=== PATIENT | male | born 1955 | race Two or more races ===

== ENCOUNTER 2024-01-27 14:57 | Inpatient (IN) | payer OTHER ==
[~2024-01-27] VITALS: Ht 182.9 cm; Wt 116.0 kg
[2024-01-27] MEDS: MORPHINE SULFATE 4 MG/ML SYR/VIAL IV ONE (15:30)
[2024-01-27] MEDS: ONDANSETRON HCL 4 MG/2 ML VIAL IV ONE (15:30)
[2024-01-27 19:43] LABS: Basophils # (auto) 0.1 10 ^3/uL (0-0.2); Basophils % (auto) 0.5 % (0.0-2.0); Eosinophils # (auto) 0.2 10 ^3/uL (0-0.8); Eosinophils % (auto) 1.6 % (0.0-7.0); Hematocrit 42.4 % (41.0-53.0); Hemoglobin 14.2 g/dL (13.5-17.5); Lymphocytes # (auto) 0.9 10 ^3/uL (0.4-5.4); Lymphocytes % (auto) 6.1 % (10.0-50.0); Mean Corpuscular Hemoglobin 31.2 pg (28.0-32.0); Mean Corpuscular Hgb Conc. 33.4 g/dL (32.0-36.0); Mean Corpuscular Volume 93.6 fL (80.0-100.0); Monocytes % (auto) 7.2 % (0.0-12.0); Neutrophils # (auto) 11.9 10 ^3/uL (1.6-8.6); Neutrophils % (auto) 84.6 % (37.0-80.0); Red Blood Cells 4.53 10^6/uL (4.5-5.90); Red Cell Distribution Width 14.2 % (11.8-14.3); White Blood Cell 14.1 10^3/uL (4.4-10.8)
[2024-01-27 19:58] LABS: INR 1.04 (0.9-1.15)
[2024-01-27 20:10] LABS: Alanine Aminotransferase 27 U/L (7-40); Albumin 4.1 g/dL (3.2-4.8); Alkaline Phosphatase 125 U/L (46-116); Anion Gap 8 (5-15); Aspartate Aminotransferase 20 U/L (13-40); BUN/Creatinine Ratio 20.2 (10.0-20.0); Blood Urea Nitrogen 18 mg/dL (9-23); Calcium 9.8 mg/dL (8.5-10.1); Carbon Dioxide 24 mmol/L (20-30); Chloride 107 mmol/L (98-107); Glucose 167 mg/dL (74-106); Potassium 4.1 mmol/L (3.5-5.1); Sodium 139 mmol/L (136-145)
[2024-01-27 20:11] LABS: Bilirubin, Total 0.9 mg/dL (0.2-1.0); Total Protein 7.3 g/dL (5.7-8.2)
[2024-01-27] MEDS: SODIUM CHLORIDE 0.9% 1,000 ML IV SCH (20:45)
[2024-01-27] MEDS ORDERED: ONDANSETRON HCL 4 MG/2 ML VIAL IV PRN (20:45)
[2024-01-27] MEDS ORDERED: DEXTROSE (50%) 50ML SYRG IV PRN (20:45)
[2024-01-27 21:22] VITALS: RESP 14; O2SAT 96
[2024-01-28] MEDS: InsuLIN REG 1unit/0.01ml Soln (100units/ml) SC SCH (01:42)
[2024-01-28] MEDS: ACCU-CHEK COMFORT CURVE STRIP VI SCH (03:51)
[2024-01-28 05:55] VITALS: PULSE 92; RESP 16; O2SAT 95
[2024-01-28 06:22] VITALS: BP 149/74; PULSE 92; RESP 16; TEMP 99.4; O2SAT 91
[2024-01-28 06:25] LABS: Basophils # (auto) 0.1 10 ^3/uL (0-0.2); Basophils % (auto) 0.4 % (0.0-2.0); Eosinophils # (auto) 0.4 10 ^3/uL (0-0.8); Eosinophils % (auto) 2.8 % (0.0-7.0); Hematocrit 40.7 % (41.0-53.0); Hemoglobin 13.9 g/dL (13.5-17.5); Lymphocytes # (auto) 1.3 10 ^3/uL (0.4-5.4); Lymphocytes % (auto) 9.3 % (10.0-50.0); Mean Corpuscular Hemoglobin 31.9 pg (28.0-32.0); Mean Corpuscular Volume 93.6 fL (80.0-100.0); Monocytes # (auto) 1.1 10 ^3/uL (0-1.3); Monocytes % (auto) 7.9 % (0.0-12.0); Neutrophils # (auto) 10.8 10 ^3/uL (1.6-8.6); Neutrophils % (auto) 79.6 % (37.0-80.0); Nucleated Red Blood Cells % 0.1 %; Red Blood Cells 4.35 10^6/uL (4.5-5.90); White Blood Cell 13.6 10^3/uL (4.4-10.8)
[2024-01-28 06:41] LABS: Chloride 107 mmol/L (98-107); Sodium 139 mmol/L (136-145)
[2024-01-28 06:42] LABS: Anion Gap 8 (5-15); Calcium 9.3 mg/dL (8.5-10.1); Carbon Dioxide 24 mmol/L (20-30)
[2024-01-28 06:47] LABS: BUN/Creatinine Ratio 20.2 (10.0-20.0); Blood Urea Nitrogen 17 mg/dL (9-23); Glucose 163 mg/dL (74-106)
[2024-01-28] MEDS ORDERED: BUPR150T18 PO (07:09)
[2024-01-28] MEDS ORDERED: FIN5T PO (07:09)
[2024-01-28] MEDS ORDERED: SERT-160 PO (07:09)
[2024-01-28] MEDS ORDERED: MONT-8 PO (07:09)
[2024-01-28] MEDS ORDERED: ERGO1CAP12 PO (07:09)
[2024-01-28] MEDS ORDERED: ATOR20TA50 PO (07:09)
[2024-01-28] MEDS ORDERED: INSU1INJ3 SC (07:09)
[2024-01-28] MEDS ORDERED: DOCU-94 PO (07:09)
[2024-01-28] MEDS ORDERED: LOS25T PO (07:09)
[2024-01-28] MEDS ORDERED: CARB-112 (07:09)
[2024-01-28] MEDS ORDERED: LACT10SO3 PO (07:09)
[2024-01-28 08:00] VITALS: PULSE 106; RESP 20; O2SAT 92
[2024-01-28] MEDS: MORPHINE SULFATE INJ 2 MG/ml SYRG IV PRN (15:22)
[2024-01-28 20:00] VITALS: PULSE 8; RESP 18; O2SAT 95
[2024-01-28 20:43] VITALS: BP 140/80; PULSE 89; RESP 20; TEMP 98.1; O2SAT 98
[2024-01-29 05:05] VITALS: BP 148/88; PULSE 77; RESP 20; TEMP 98.1; O2SAT 97
[2024-01-29 09:00] VITALS: BP 166/87; PULSE 85; RESP 18; TEMP 98.4; O2SAT 93
[2024-01-29 12:32] VITALS: BP 146/80; PULSE 85; RESP 18; TEMP 97.8; O2SAT 94
[2024-01-29 15:26] VITALS: BP 146/80; PULSE 85; RESP 18; TEMP 97.8; O2SAT 94
[2024-01-29 17:00] VITALS: BP 146/86; PULSE 82; RESP 16; TEMP 97.6; O2SAT 94
[2024-01-29 20:00] VITALS: PULSE 84; RESP 18; O2SAT 94
== END 2024-01-29 22:45 | disposition short-term general hospital (02) | DRG 536 ==
LOC: ER 14:57 → EDBD 14:57 → OVERFLOW 20:39 → WEST WING 01-28 05:55
PROVIDERS: ADMIT Nurse Practitioner; ATTEND Family Medicine
PROC: 0T9B70Z Drainage of Bladder with Drainage Device, Via Natural or Artificial Opening (ICD-10-PCS; principal; 2024-01-28)
DX: S72.002A Fracture of unspecified part of neck of left femur, initial encounter for closed fracture (principal); E11.9 Type 2 diabetes mellitus without complications; E78.00 Pure hypercholesterolemia, unspecified; F03.90 Unspecified dementia, unspecified severity, without behavioral disturbance, psychotic disturbance, mood disturbance, and anxiety; I10 Essential (primary) hypertension; R33.8 Other retention of urine; N40.1 Benign prostatic hyperplasia with lower urinary tract symptoms; T83.021A Displacement of indwelling urethral catheter, initial encounter; Z79.4 Long term (current) use of insulin; Z79.899 Other long term (current) drug therapy; Y84.8 Other medical procedures as the cause of abnormal reaction of the patient, or of later complication, without mention of misadventure at the time of the procedure; W05.0XXA Fall from non-moving wheelchair, initial encounter; Y93.89 Activity, other specified; Y99.8 Other external cause status; Y92.099 Unspecified place in other non-institutional residence as the place of occurrence of the external cause
CPT/HCPCS: 36415; 71045; 72192; 73502; 80048; 80053; 82962; 85025; 85610; 86850; 86900; 86901; 93005; 97163; G0378; J1815; J2405

== ENCOUNTER 2024-03-02 10:47 | Inpatient (IN) | payer OTHER ==
[~2024-03-02] VITALS: Ht 180.3 cm; Wt 107.0 kg
[~2024-03-02 10:47] MED LIST: ATOR20TA50 PO; BUPR150T18 PO; CARB-112; DOCU-94 PO; ERGO1CAP12 PO; FIN5T PO; INSU1INJ3 SC; LACT10SO3 PO; LOS25T PO; MONT-8 PO; SERT-160 PO
[2024-03-02 11:52] LABS: Basophils # (auto) 0 10 ^3/uL (0-0.2); Basophils % (auto) 0.4 % (0.0-2.0); Eosinophils # (auto) 0.3 10 ^3/uL (0-0.8); Eosinophils % (auto) 2.7 % (0.0-7.0); Hematocrit 32.8 % (41.0-53.0); Hemoglobin 10.6 g/dL (13.5-17.5); Lymphocytes # (auto) 1.2 10 ^3/uL (0.4-5.4); Lymphocytes % (auto) 10.8 % (10.0-50.0); Mean Corpuscular Hemoglobin 29.1 pg (28.0-32.0); Mean Corpuscular Hgb Conc. 32.4 g/dL (32.0-36.0); Mean Corpuscular Volume 89.8 fL (80.0-100.0); Monocytes # (auto) 0.8 10 ^3/uL (0-1.3); Monocytes % (auto) 7.1 % (0.0-12.0); Neutrophils # (auto) 9.1 10 ^3/uL (1.6-8.6); Nucleated Red Blood Cells % 0.1 %; Red Blood Cells 3.65 10^6/uL (4.5-5.90); Red Cell Distribution Width 15.6 % (11.8-14.3); White Blood Cell 11.5 10^3/uL (4.4-10.8)
[2024-03-02 11:56] LABS: Anion Gap 7 (5-15); Carbon Dioxide 24 mmol/L (20-30); Chloride 104 mmol/L (98-107); Potassium 3.8 mmol/L (3.5-5.1); Sodium 135 mmol/L (136-145)
[2024-03-02 11:57] LABS: Calcium 9.3 mg/dL (8.7-10.4)
[2024-03-02 12:02] LABS: Blood Alcohol < 3.0 mg/dL (<10); Blood Urea Nitrogen 18 mg/dL (9-23); Glucose 195 mg/dL (74-106)
[2024-03-02 14:51] VITALS: PULSE 63; RESP 16; O2SAT 94
[2024-03-02 16:23] LABS: Urine Bacteria MOD /hpf (None Seen); Urine Blood 1+ /uL (Negative); Urine Clarity Turbid (Clear); Urine Color Yellow (Yellow); Urine Hyaline Cast FEW /lpf (0 - 2); Urine Mucus FEW (None Seen); Urine Protein, UAD 1+ (Negative); Urine Specific Gravity 1.026 (1.001-1.035); Urine Urobilinogen Normal (Negative); Urine WBC 160 /hpf (0 - 3); Urine pH 5.5 (5.0-9.0)
[2024-03-02] MEDS ORDERED: ACETAMINOPHEN 325 MG TAB PO PRN (17:15)
[2024-03-02] MEDS ORDERED: ONDANSETRON HCL 4 MG/2 ML VIAL IV PRN (17:15)
[2024-03-02] MEDS ORDERED: DOCUSATE SOD 100 MG CAP PO PRN (17:15)
[2024-03-02] MEDS ORDERED: DEXTROSE (50%) 50ML SYRG IV PRN (17:15)
[2024-03-02] MEDS ORDERED: hydrALAZINE HCL 20 MG/ML VL IV PRN (17:15)
[2024-03-02] MEDS: cefTRIAXone 1GM/50ML D5W 50 ML IV ONE (17:24)
[2024-03-02] MEDS: SODIUM CHLORIDE 0.9% 1,000 ML IV SCH (17:24)
[2024-03-02] MEDS ORDERED: MORPHINE SULFATE INJ 2 MG/ml SYRG IV PRN (17:45)
[2024-03-02] MEDS ORDERED: NITROGLYCERIN 0.4 MG SL TAB SL PRN (17:45)
[2024-03-02 19:30] VITALS: PULSE 63; RESP 16; O2SAT 97
[2024-03-02] MEDS: InsuLIN REG 1unit/0.01ml Soln (100units/ml) SC SCH (22:00)
[2024-03-02] MEDS: CARBIDOPA W LEVODOPA 25/100mg TABLET PO SCH (23:05)
[2024-03-02] MEDS: ACCU-CHEK COMFORT CURVE STRIP VI SCH (23:14)
[2024-03-03 06:10] LABS: Basophils # (auto) 0 10 ^3/uL (0-0.2); Basophils % (auto) 0.5 % (0.0-2.0); Eosinophils # (auto) 0.2 10 ^3/uL (0-0.8); Eosinophils % (auto) 2.3 % (0.0-7.0); Hematocrit 33.3 % (41.0-53.0); Hemoglobin 10.9 g/dL (13.5-17.5); Lymphocytes % (auto) 11.4 % (10.0-50.0); Mean Corpuscular Hemoglobin 29.3 pg (28.0-32.0); Mean Corpuscular Hgb Conc. 32.7 g/dL (32.0-36.0); Mean Corpuscular Volume 89.4 fL (80.0-100.0); Monocytes # (auto) 0.7 10 ^3/uL (0-1.3); Monocytes % (auto) 8.1 % (0.0-12.0); Neutrophils # (auto) 7.1 10 ^3/uL (1.6-8.6); Neutrophils % (auto) 77.7 % (37.0-80.0); Red Blood Cells 3.72 10^6/uL (4.5-5.90); Red Cell Distribution Width 15.7 % (11.8-14.3); White Blood Cell 9.2 10^3/uL (4.4-10.8)
[2024-03-03] MEDS: InsuLIN REG 1unit/0.01ml Soln (100units/ml) SC SCH (06:40)
[2024-03-03 06:44] LABS: Albumin 3.5 g/dL (3.2-4.8); Alkaline Phosphatase 152 U/L (46-116); Anion Gap 8 (5-15); Aspartate Aminotransferase 13 U/L (13-40); Bilirubin, Total 0.3 mg/dL (0.2-1.0); Blood Urea Nitrogen 17 mg/dL (9-23); Calcium 9.2 mg/dL (8.7-10.4); Carbon Dioxide 25 mmol/L (20-30); Chloride 105 mmol/L (98-107); Glucose 141 mg/dL (74-106); Potassium 4.1 mmol/L (3.5-5.1); Sodium 138 mmol/L (136-145); Total Protein 6.7 g/dL (5.7-8.2)
[2024-03-03 06:50] LABS: Alanine Aminotransferase < 9 U/L (7-40)
[2024-03-03 07:42] VITALS: PULSE 62; RESP 16; O2SAT 96
[2024-03-03] MEDS: cefTRIAXone 1GM/50ML D5W 50 ML IV SCH (09:23)
[2024-03-03] MEDS: SODIUM CHLORIDE 0.9% 1,000 ML IV SCH ×2 (12:00→16:09)
[2024-03-03] MEDS: SODIUM CHLORIDE 0.9% 1,850 ML IV ONE (14:45)
[2024-03-03 20:00] VITALS: PULSE 73; RESP 19; O2SAT 94
[2024-03-03] MEDS: TAMSULOSIN HYDROCHLORIDE 0.4 MG CAP PO SCH (21:54)
[2024-03-03] MEDS: ATORVASTATIN 20 MG TAB PO SCH (21:55)
[2024-03-04 06:13] LABS: Basophils # (auto) 0 10 ^3/uL (0-0.2); Basophils % (auto) 0.6 % (0.0-2.0); Eosinophils # (auto) 0.2 10 ^3/uL (0-0.8); Eosinophils % (auto) 2.7 % (0.0-7.0); Hematocrit 32.8 % (41.0-53.0); Lymphocytes # (auto) 1.4 10 ^3/uL (0.4-5.4); Lymphocytes % (auto) 17.1 % (10.0-50.0); Mean Corpuscular Hgb Conc. 33.5 g/dL (32.0-36.0); Mean Corpuscular Volume 89.5 fL (80.0-100.0); Monocytes # (auto) 0.6 10 ^3/uL (0-1.3); Monocytes % (auto) 6.7 % (0.0-12.0); Neutrophils % (auto) 72.9 % (37.0-80.0); Nucleated Red Blood Cells % 0.1 %; Red Blood Cells 3.67 10^6/uL (4.5-5.90); Red Cell Distribution Width 15.9 % (11.8-14.3); White Blood Cell 8.2 10^3/uL (4.4-10.8)
[2024-03-04] MEDS: HYDROcodone-ACET 5/325MG TAB PO PRN (06:16)
[2024-03-04 06:22] LABS: Anion Gap 7 (5-15); Carbon Dioxide 26 mmol/L (20-30); Chloride 104 mmol/L (98-107); Potassium 3.9 mmol/L (3.5-5.1); Sodium 137 mmol/L (136-145)
[2024-03-04 06:24] LABS: Calcium 9.3 mg/dL (8.7-10.4)
[2024-03-04 06:28] LABS: BUN/Creatinine Ratio 20.3 (10.0-20.0); Blood Urea Nitrogen 14 mg/dL (9-23); Glucose 178 mg/dL (74-106)
[2024-03-04 08:00] VITALS: PULSE 63; RESP 12; O2SAT 97
[2024-03-04] MEDS: FINASTERIDE 5 MG TAB PO SCH (10:13)
[2024-03-04 18:00] VITALS: RESP 18
[2024-03-04] MEDS ORDERED: TAMSULOSIN HYDROCHLORIDE 0.4 MG CAP PO SCH (18:00)
[2024-03-04] MEDS: CARBIDOPA W LEVODOPA 25/100mg TABLET PO SCH (18:16)
[2024-03-04] MEDS ORDERED: SUCR1SUS26 PO (19:01)
[2024-03-04] MEDS ORDERED: PANT40T PO (19:01)
[2024-03-04 20:00] VITALS: PULSE 63
[2024-03-04 21:01] VITALS: BP 141/74; PULSE 65; RESP 19; TEMP 99.1; O2SAT 96
[2024-03-05] VITALS (8 sets, daily range): BP systolic 113–155; BP diastolic 58–79; PULSE 65–75; RESP 14–20; TEMP 97.6–98.9; O2SAT 92–97
[2024-03-05 06:11] LABS: Basophils # (auto) 0 10 ^3/uL (0-0.2); Basophils % (auto) 0.5 % (0.0-2.0); Eosinophils # (auto) 0.2 10 ^3/uL (0-0.8); Eosinophils % (auto) 2.5 % (0.0-7.0); Hematocrit 34.3 % (41.0-53.0); Hemoglobin 11.3 g/dL (13.5-17.5); Lymphocytes # (auto) 1.2 10 ^3/uL (0.4-5.4); Lymphocytes % (auto) 14.3 % (10.0-50.0); Mean Corpuscular Hemoglobin 29.4 pg (28.0-32.0); Mean Corpuscular Volume 89.3 fL (80.0-100.0); Monocytes # (auto) 0.6 10 ^3/uL (0-1.3); Monocytes % (auto) 7.4 % (0.0-12.0); Neutrophils # (auto) 6.5 10 ^3/uL (1.6-8.6); Neutrophils % (auto) 75.3 % (37.0-80.0); Nucleated Red Blood Cells % 0.1 %; Red Blood Cells 3.84 10^6/uL (4.5-5.90); Red Cell Distribution Width 15.8 % (11.8-14.3); White Blood Cell 8.7 10^3/uL (4.4-10.8)
[2024-03-05 06:19] LABS: Chloride 104 mmol/L (98-107); Potassium 3.9 mmol/L (3.5-5.1); Sodium 137 mmol/L (136-145)
[2024-03-05 06:20] LABS: Anion Gap 6 (5-15); Calcium 9.6 mg/dL (8.7-10.4); Carbon Dioxide 27 mmol/L (20-30)
[2024-03-05 06:25] LABS: BUN/Creatinine Ratio 16.2 (10.0-20.0); Blood Urea Nitrogen 11 mg/dL (9-23); Glucose 182 mg/dL (74-106)
[2024-03-06] VITALS (8 sets, daily range): BP systolic 105–142; BP diastolic 54–74; PULSE 67–91; RESP 17–20; TEMP 97.4–99; O2SAT 91–95
[2024-03-06] MEDS ORDERED: TAMS0.4C36 PO (12:53)
[2024-03-06] MEDS: PANTOPRAZOLE 40 MG TAB PO ONE (17:38)
[2024-03-06] MEDS: ENOXAPARIN SOD 40 MG/0.4 ML SYRINGE SC ONE (17:39)
[2024-03-06] MEDS: SULFAMETHOX W/TRIMETH(800/160MG) DS TAB PO SCH (20:21)
[2024-03-07] VITALS (8 sets, daily range): BP systolic 104–132; BP diastolic 56–76; PULSE 69–94; RESP 16–20; TEMP 97.9–99; O2SAT 94–95
[2024-03-07] MEDS: PANTOPRAZOLE 40 MG TAB PO SCH (05:31)
[2024-03-07 07:07] LABS: Basophils # (auto) 0.1 10 ^3/uL (0-0.2); Basophils % (auto) 0.5 % (0.0-2.0); Eosinophils # (auto) 0.4 10 ^3/uL (0-0.8); Eosinophils % (auto) 3.5 % (0.0-7.0); Hematocrit 35.5 % (41.0-53.0); Hemoglobin 11.8 g/dL (13.5-17.5); Lymphocytes # (auto) 1.7 10 ^3/uL (0.4-5.4); Lymphocytes % (auto) 16.7 % (10.0-50.0); Mean Corpuscular Hemoglobin 29.6 pg (28.0-32.0); Mean Corpuscular Hgb Conc. 33.3 g/dL (32.0-36.0); Mean Corpuscular Volume 88.9 fL (80.0-100.0); Monocytes # (auto) 0.8 10 ^3/uL (0-1.3); Monocytes % (auto) 7.7 % (0.0-12.0); Neutrophils # (auto) 7.5 10 ^3/uL (1.6-8.6); Neutrophils % (auto) 71.6 % (37.0-80.0); Nucleated Red Blood Cells % 0.1 %; Red Blood Cells 3.99 10^6/uL (4.5-5.90); Red Cell Distribution Width 15.8 % (11.8-14.3); White Blood Cell 10.4 10^3/uL (4.4-10.8)
[2024-03-07 07:29] LABS: Anion Gap 6 (5-15); Carbon Dioxide 27 mmol/L (20-30); Chloride 103 mmol/L (98-107); Sodium 136 mmol/L (136-145)
[2024-03-07 07:31] LABS: Calcium 9.7 mg/dL (8.7-10.4)
[2024-03-07 07:35] LABS: BUN/Creatinine Ratio 20.8 (10.0-20.0); Blood Urea Nitrogen 15 mg/dL (9-23); Glucose 167 mg/dL (74-106)
[2024-03-07] MEDS: LACTULOSE 20Gm/30ML SOLN PO ONE ×2 (08:53→10:15)
[2024-03-07] MEDS: ENOXAPARIN SOD 40 MG/0.4 ML SYRINGE SC SCH (08:53)
[2024-03-07] MEDS: POLYETHYLENE GLYCOL 17 GM PWDR PO PRN (15:37)
[2024-03-07] MEDS ORDERED: LACTULOSE 20Gm/30ML SOLN PO PRN (22:00)
[2024-03-08 01:00] VITALS: BP 116/62; PULSE 87; RESP 18; TEMP 98.4; O2SAT 95
[2024-03-08 05:00] VITALS: BP 121/59; PULSE 85; RESP 18; TEMP 98.3; O2SAT 96
[2024-03-08 05:28] LABS: Basophils # (auto) 0 10 ^3/uL (0-0.2); Basophils % (auto) 0.4 % (0.0-2.0); Eosinophils # (auto) 0.4 10 ^3/uL (0-0.8); Eosinophils % (auto) 3.4 % (0.0-7.0); Hematocrit 36.3 % (41.0-53.0); Lymphocytes # (auto) 1.1 10 ^3/uL (0.4-5.4); Lymphocytes % (auto) 9.7 % (10.0-50.0); Mean Corpuscular Hemoglobin 29.5 pg (28.0-32.0); Mean Corpuscular Volume 89.5 fL (80.0-100.0); Monocytes # (auto) 0.8 10 ^3/uL (0-1.3); Monocytes % (auto) 6.8 % (0.0-12.0); Neutrophils # (auto) 9.3 10 ^3/uL (1.6-8.6); Neutrophils % (auto) 79.7 % (37.0-80.0); Red Blood Cells 4.05 10^6/uL (4.5-5.90); Red Cell Distribution Width 16.3 % (11.8-14.3); White Blood Cell 11.7 10^3/uL (4.4-10.8)
[2024-03-08 05:38] LABS: Anion Gap 8 (5-15); Calcium 9.5 mg/dL (8.7-10.4); Carbon Dioxide 24 mmol/L (20-30); Chloride 104 mmol/L (98-107); Potassium 3.8 mmol/L (3.5-5.1); Sodium 136 mmol/L (136-145)
[2024-03-08 05:44] LABS: BUN/Creatinine Ratio 17.4 (10.0-20.0); Blood Urea Nitrogen 16 mg/dL (9-23); Glucose 190 mg/dL (74-106)
[2024-03-08 07:30] VITALS: PULSE 89; RESP 18; O2SAT 98
[2024-03-08 09:00] VITALS: BP 120/61; PULSE 89; RESP 18; TEMP 98.9; O2SAT 98
[2024-03-08 12:26] VITALS: BP 104/54; PULSE 82; RESP 18; TEMP 98.9; O2SAT 96
[2024-03-08 17:00] VITALS: BP 119/59; PULSE 79; RESP 16; TEMP 98.6; O2SAT 98
== END 2024-03-08 18:25 | DRG 689 ==
LOC: ER 10:47 → EDBD 10:47 → TELE 17:42 → TELE-WESTW 03-04 17:56 → WEST WING 03-06 13:13
PROVIDERS: ADMIT Internal Medicine Geriatric Medicine; ATTEND Internal Medicine Geriatric Medicine
DX: N30.00 Acute cystitis without hematuria (principal); G93.41 Metabolic encephalopathy; E11.65 Type 2 diabetes mellitus with hyperglycemia; I10 Essential (primary) hypertension; G20.A1 Parkinson's disease without dyskinesia, without mention of fluctuations; N40.1 Benign prostatic hyperplasia with lower urinary tract symptoms; E11.9 Type 2 diabetes mellitus without complications; E78.5 Hyperlipidemia, unspecified; E66.9 Obesity, unspecified; Z68.32 Body mass index [BMI] 32.0-32.9, adult; Z79.4 Long term (current) use of insulin; Z79.899 Other long term (current) drug therapy
CPT/HCPCS: 36415; 70450; 73502; 80048; 80053; 80320; 81001; 82962; 83036; 83605; 85025; 87040; 87081; 87086; 87088; 87186; 93306; 97110; 97116; 97163; 97530; G0378; J1815